=== PATIENT | male | born 1955 | race Caucasian/White ===

== ENCOUNTER 2017-08-21 17:22 | Emergency (ER) | payer BC, OTHER ==
[~2017-08-21] VITALS: Ht 180.3 cm; Wt 98.0 kg
[2017-08-21 17:24] VITALS: BP 171/114; PULSE 87; RESP 18; O2SAT 98
--- NOTE | 2017-08-21 17:29 | PD ---
Data Data Last Documented VS Vital Signs Date Time Temp Pulse Resp B/P (MAP) Pulse Ox O2 Delivery O2 Flow Rate FiO2 08/21/17 17:27 90 18 08/21/17 17:24 171/114 (133) 98 MDM Supervised Visit with DENNIS: No Narrative Course I, Dr. Gonzales, have reviewed the advance practice practitioner's documentation and am in agreement, met with the patient face to face, made the diagnosis, and the medical decision making was done by me. *My assessment and Findings: Patient seen and examined by me in addition to Leif MORA, patient had table saw injury to his right thumb, likely not salvageable avulsion to the distal phalanx of the right thumb. Mr. العراقي discussed with Dr. Goodman who recommends tacking the skin back into place antibiotics and splinting and follow-up with his office. Think this is reasonable for the time being. Jeremias Gonzales MD Aug 21, 2017 17:29
[2017-08-21] MEDS ORDERED: SODIUM CHLORIDE 0.9% FLUSH 10 ML FLUSH IV FLUSH PRN (17:30)
[2017-08-21] MEDS ORDERED: BUPIVACAINE HCL PF 0.5% 30 ML VIAL INFIL ONE (17:30)
[2017-08-21] MEDS ORDERED: MORPHINE SULFATE 4 MG/ML INJ IV PUSH ONE (17:30)
[2017-08-21] MEDS ORDERED: ONDANSETRON HCL 4 MG/2 ML VIAL IVP ONE (17:30)
[2017-08-21] MEDS ORDERED: LIDOCAINE 2%/EPINEPHrine 1:100,000 20ML MDV NERV BLOCK ONE (17:30)
[2017-08-21] MEDS ORDERED: ceFAZolin 2 GM PREMIX 50 ML IV ONE (17:30)
[2017-08-21 17:41] VITALS: BP 168/99; PULSE 95; RESP 20; O2SAT 100
[2017-08-21] MEDS ORDERED: TETANUS/DIPHTHERIA TOXOID ADULT 0.5 ML VIAL IM ONE (17:45)
--- NOTE | 2017-08-21 17:56 | PD ---
HPI Chief Complaint: Laceration/Skin Injury Time Seen by Provider: 17:27 Travel History International Travel<30 days: No Contact w/Intl Traveler<30days: No Traveled to known affect area: No History of Present Illness HPI The 31-year-old male presents the emergency department with injury to the right distal thumb. Patient was cutting lumbar working on a dock with a table saw when he sustained a laceration to the distal right thumb. It is almost completely amputated across the nailbed. Bleeding is controlled. Tetanus is up-to-date. Pain is 9 out of 10. Patient has no known drug allergies. PFSH Past Medical History High Cholesterol: Yes GERD: Yes Past Surgical History Surgical History: No Previous Surgery Social History Alcohol Use: Yes (daily) Tobacco Use: No Substance Use: No Allergies-Medications (Allergen,Severity, Reaction): Coded Allergies: No Known Allergies (Unverified , 08/21/17) Reported Meds & Prescriptions Reported Meds & Active Scripts Active Hydrocodone-Acetaminophen 5-325 mg Tab 1 Tab PO Q6H PRN Keflex (Cephalexin) 500 Mg Capsule 500 Mg PO Q8H Review of Systems Except as stated in HPI: all other systems reviewed are Neg General / Constitutional: No: Fever Eyes: No: Visual changes HENT: No: Headaches Cardiovascular: No: Chest Pain or Discomfort Respiratory: No: Shortness of Breath Gastrointestinal: No: Abdominal Pain Genitourinary: No: Dysuria Musculoskeletal: No: Pain Skin: Positive Other (see history of present illness), No Rash Neurologic: No: Weakness Psychiatric: No: Depression Endocrine: No: Polydipsia Hematologic/Lymphatic: No: Easy Bruising Physical Exam Narrative GENERAL: Patient appears in moderate distress. SKIN: Warm and dry. Color. Normal turgor. Patient has obvious almost complete distal amputation for laceration from table saw to the right distal thumb across the nailbed. No other injuries are noted. HEAD: Atraumatic. Normocephalic. EYES: Pupils equal and round. No scleral icterus. No injection or drainage. ENT: No nasal bleeding or discharge. Mucous membranes pink and moist. Pharynx is clear. Airway is patent. NECK: Trachea midline. Supple and nontender. CARDIOVASCULAR: Regular rate and rhythm. RESPIRATORY: No accessory muscle use. Clear to auscultation. Breath sounds equal bilaterally. MUSCULOSKELETAL: Extremities without clubbing, cyanosis, or edema. No obvious deformities. Right thumb was almost completely without involvement of the DIP joint of the right thumb. NEUROLOGICAL: Awake and alert. No obvious cranial nerve deficits. Motor grossly within normal limits. Five out of 5 muscle strength in the arms and legs. Normal speech. PSYCHIATRIC: Appropriate mood and affect; insight and judgment normal. Data Data Last Documented VS Vital Signs Date Time Temp Pulse Resp B/P (MAP) Pulse Ox O2 Delivery O2 Flow Rate FiO2 08/21/17 17:41 95 20 168/99 (122) 100 Room Air Orders Orders Lidocai-Epi 2%-1:100,000 Inj (Xylocaine- (08/21/17 17:30) Bupivacaine Pf 0.5% Inj (Marcaine Pf 0.5 (08/21/17 17:30) Iv Access Insert/Monitor (08/21/17 17:27) Ecg Monitoring (08/21/17 17:27) Oximetry (08/21/17 17:27) Morphine Inj (Morphine Inj) (08/21/17 17:30) Ondansetron Inj (Zofran Inj) (08/21/17 17:30) Sodium Chloride 0.9% Flush (Ns Flush) (08/21/17 17:30) Cefazolin 2 Gm Premix (Ancef 2 Gm Premix (08/21/17 17:30) Finger ([id number]) (08/21/17 17:29) Tetanus/Diphtheria Tox Adult (Tetanus/Di (08/21/17 17:45) MDM Medical Decision Making Medical Screen Exam Complete: Yes Emergency Medical Condition: Yes Differential Diagnosis Partial traumatic amputation of the right thumb. Laceration. Open fracture. Narrative Course Patient is medically stable at time of exam. Digital block is placed consisting of 50-50 mix of 2% lidocaine with epi mixed with 0.5% bupivacaine with total of 3 mL placed with good anesthetic effect. IV access was obtained patient is given 4 mg morphine IV as well as 4 mg Zofran IV X-ray shows distal tuft is from the distal phalanx. Patient is given 2 g Ancef IV. Pictures sent to Dr. Neely, the hand surgeon on-call and treatment as discussed. He recommends closure with close follow-up in his office. Wound is closed. See procedure note. Dressing is to remain in place until seen in follow-up by the hand surgeon. Patient is kept on Keflex 500 mg 3 times a day 10 days. Patient is given Lortab 5/325 one every 6 hours when necessary pain and 20. Patient is to call Dr. Neely's office for follow-up early next week. Patient can return to emergency Department with worsening symptoms as needed. 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 Patient is kept on Keflex 500 mg 3 times a day 10 days. Patient is given Lortab 5/325 one every 6 hours when necessary pain and 20. Patient is to call Dr. Neely's office for follow-up early next week. Patient can return to emergency Department with worsening symptoms as needed. Med/Other Pt SpecificInfo: Prescription(s) given, Wound Care Scripts Hydrocodone-Acetaminophen (Hydrocodone-Acetaminophen) 5-325 mg Tab 1 TAB PO Q6H Y for PAIN, #20 TAB 0 Refills Prov: Jeremias Gonzales MD 08/21/17 Cephalexin (Keflex) 500 Mg Capsule 500 MG PO Q8H for Infection, #30 CAP 0 Refills Prov: Jeremias Gonzales MD 08/21/17 Disposition: 01 DISCHARGE HOME Condition: Stable Anthony العراقي Aug 21, 2017 17:56
--- NOTE | 2017-08-21 18:46 | RADRPT ---
EXAM DATE/TIME: 08/21/2017 17:48 [facility] COMPARISON: No previous studies available for comparison. INDICATIONS : Laceration to thumb due to tablesaw. MEDICAL HISTORY : None. SURGICAL HISTORY : None. ENCOUNTER: Initial ACUITY: 1 day PAIN SCORE: 7/10 LOCATION: Right Distal phalanx FINDINGS: There is a comminuted fracture at the distal aspect of the first distal phalanx. This is associated w ith soft tissue injury. The first inner phalangeal joint is uninvolved. CONCLUSION: Comminuted open first distal phalanx fracture. Tien Zazueta MD on August 21, 2017 at 18:43 Board Certified Radiologist. This report was verified electronically.
[2017-08-21] MEDS ORDERED: HYDR-3516 PO (19:05)
[2017-08-21] MEDS ORDERED: CEPH-460 PO (19:05)
[2017-08-24] MEDS ORDERED: OXYC1TAB36 PO (10:09)
[2017-08-24] MEDS ORDERED: PANT20TA2 PO (10:12)
[2017-08-24] MEDS ORDERED: IBUP1TAB7 PO (11:17)
[2017-08-26] MEDS ORDERED: HYDR-3288 PO (11:50)
== END 2017-08-21 19:35 | disposition home or self-care (01) ==
LOC: NEPE 17:22
DX: S68.521A Partial traumatic transphalangeal amputation of right thumb, initial encounter (principal); W29.8XXA Contact with other powered hand tools and household machinery, initial encounter; Y92.89 Other specified places as the place of occurrence of the external cause; Z23 Encounter for immunization
CPT/HCPCS: 12002; 73140; 96365; 96375; 99284; J0690; J2270; J2405; 90471

== ENCOUNTER → 2017-08-26 | Day surgery (SDC) | payer OTHER ==
[~2017-08-26] VITALS: Ht 180.3 cm; Wt 97.2 kg
[~2017-08-26] MED LIST: ACETAMINOPHEN/HYDROcodone 325 MG/7.5 MG TAB ONE; BUPIVACAINE HCL PF 0.5% 30 ML VIAL ONE; CEPH-460 PO; CHLORHEXIDINE GLUCONATE 2 % 1 PACK (2 CLOTHS) TOPICAL PRN; HYDR-3288 PO; HYDR-3516 PO; IBUP1TAB7 PO; LACTATED RINGER'S 1000 ML INJ 1,000 ML IV ONE; LACTATED RINGER'S 1000 ML INJ 1,000 ML ONE; LACTATED RINGER'S 1000 ML IV PRN; LIDOCAINE HCL 2% 50 ML VIAL ONE; MEPERIDINE HCL 25 MG/ML VIAL ONE; METOPROLOL TARTRATE 25 MG TAB PO PRN; MORPHINE SULFATE 4 MG/ML INJ ONE; MUPIROCIN 2% OINT 22 GM TUBE ONE; NEOMYCIN/POLYMYXIN 1 ML G.U. IRRIGANT ONE; OXYC1TAB36 PO; PANT20TA2 PO; POVIDONE IODINE 5% (ANTISEPSIS KIT) 4 APPLICATIONS EACH NARE PRN; PROPOFOL 200 MG/20 ML AMP IV ONE; SODIUM CHLORID 0.9% 500 ML IV PRN; ceFAZolin 1,000 MG/NS 100 ML IV SCH
[2017-08-26 11:28] VITALS: PULSE 85
--- NOTE | 2017-08-26 12:42 | MP ---
cc: PIERCE SOLORIO III, M.D. DATE OF SURGERY: 08/26/2017 PREOPERATIVE DIAGNOSIS 1. Right thumb open fracture and nailbed injury. PROCEDURE 1. Debridement of skin, subcutaneous tissue and bone associated with open fracture, right thumb distal phalanx. 2. Open reduction and pinning of the right thumb distal phalanx. 3. Right thumb nailbed repair. 4. Use of image intensifier. PROCEDURE The patient was brought to the operating room and placed supine on the operating table. After the correct site and side of surgery were verified by members of each team in the room multiple times including the patient, myself and after adequate preoperative markings, preoperative written consent was verified by everyone and after adequate preoperative time-out was performed, and after adequate general anesthesia had been achieved, the right upper extremity was prepped and draped in traditional sterile surgical fashion. A 50/50 mixture of 2% plain lidocaine, 0.5% plain Marcaine was infiltrated in the skin and subcutaneous tissue at the base of the thumb in the first webspace. The limb was elevated and pressure was held on the brachial artery for a minute and a highly placed well-padded axillary tourniquet was inflated to 200 mmHg for a total of 32 minutes. The existing sutures were removed. A culture was obtained from the fracture fragments of the distal phalanx. Devitalized tissue including small fragments of bone were all sharply debrided. Following this a liters worth of saline was used to forcefully flush out the wound. Devitalized skin edges were debrided sharply. 4-0 Chromic suture was then used to tack some of the pieces back together and then a 0.028 cm K-wire was used in an antegrade and retrograde fashion to pin the largest fragments of the distal phalanx back in approximation. The remaining skin edges were loosely reapproximated using simple 4-0 Chromic sutures. The nailbed was then precisely repaired using multiple interrupted 5-0 Chromic sutures. Final x-rays were obtained. The pin was tailored to length, cut, bent. [place]he[place] Balls were applied. Betadine and Xeroform was applied around the pin site. Bactroban ointment was applied on top of the nailbed, then a well-padded, well-molded short-arm thumb spica splint was made in the usual fashion. The patient was awakened from anesthesia and transported to Post Anesthesia Care Unit awake and in stable condition at the end of the case. Sponge, needle, instrument counts were correct at the end of the case as reported by nurses in the room. MD BOZENA Higgins III/ANNETTE /12:00 PM /12:29 PM
[2017-08-26 12:50] VITALS: BP 131/83; PULSE 76; RESP 16; TEMP 97.4; O2SAT 100
--- NOTE | 2017-08-28 08:46 | EKG ---
Date Performed: 08/26/2017 Time Performed: 09:16:20 PTAGE: 61 years EKG: Sinus rhythm NONSPECIFIC ST & T-WAVE ABNORMALITY BORDERLINE ECG PREVIOUS TRACING : 10/18/1999 08.50 DOCTOR: Kai Vargas Interpretating Date/Time 08/28/2017 08:44:12
== END | disposition home or self-care (01) ==
LOC: PHSDC 08:29
PROVIDERS: ATTEND Orthopaedic Surgery Hand Surgery
DX: S62.521B Displaced fracture of distal phalanx of right thumb, initial encounter for open fracture (principal); E78.00 Pure hypercholesterolemia, unspecified; K21.9 Gastro-esophageal reflux disease without esophagitis; W31.2XXA Contact with powered woodworking and forming machines, initial encounter; Y93.89 Activity, other specified; Z01.810 Encounter for preprocedural cardiovascular examination; Z01.818 Encounter for other preprocedural examination
CPT/HCPCS: 01830; 11012; 11760; 26765; 87070; 87205; 93005; J0690; J2175; J2270; J3010; J7120; L3808